=== PATIENT | female | born 1960 | race Caucasian/White ===

== ENCOUNTER 2021-08-10 03:01 | Outpatient (CLI) | payer OTHER, SELFPAY ==
[2021-08-10 13:12] LABS: TSH (W/Ref FT4) 2.98 uIU/mL (0.36-3.74)
== END 2021-08-10 03:02 | disposition home or self-care (01) ==
LOC: LBO 03:01
PROVIDERS: PCP Family Medicine; Visit Provider Otolaryngology
DX: E06.3 Autoimmune thyroiditis (principal)
CPT/HCPCS: 36415; 84443